=== PATIENT | female | born 1985 | race Caucasian/White ===

== ENCOUNTER 2016-04-08 07:43 | Emergency (ER) | payer OTHER ==
[~2016-04-08] VITALS: Ht 157.5 cm; Wt 57.8 kg
[2016-04-08 07:46] VITALS: Ht 157.5 cm; Wt 57.8 kg
[2016-04-08] MEDS ORDERED: ONDANSETRON (ODT) 4 MG TAB ODT STA (08:08)
[2016-04-08] MEDS ORDERED: MECLIZINE 12.5 MG TAB PO ONE (08:30)
[2016-04-08 08:55] LABS: URINE BLOOD (Dip) POC 1+ (NEGATIVE)
[2016-04-08] MEDS ORDERED: CEPH-443 PO (09:07)
[2016-04-08] MEDS ORDERED: ONDA4TAB14 PO (09:07)
--- NOTE | 2016-04-08 09:20 | ERD ---
ER Documentation Chief Complaint Date/Time DATE: 04/08/16 TIME: 09:14 Chief Complaint flu luis e symptoms x 1 week HPI 30-year-old female presents with multiple complaints including "sinus headache "cough, congestion, runny nose, body aches, chills. She also admits to dysuria and increased urinary frequency. Denies hematuria. Also admits to dizziness and feeling the room is spinning is worse with changing positions of her head. Symptoms haven't going on for about one week. She is taking Advil which has not helped. ROS All systems reviewed and are negative except as per history of present illness. Medications Home Meds Active Scripts Ondansetron (Ondansetron Odt) 4 Mg Tab.rapdis, 4 MG PO Q6H Y for NAUSEA AND/OR VOMITING, #20 TAB Prov:ECTOR SORIA PA-C 04/08/16 Cephalexin* (Keflex*) 500 Mg Capsule, 500 MG PO BID for 7 Days, CAP Prov:ECTOR SORIA PA-C 04/08/16 Allergies Allergies: Coded Allergies: No Known Allergy (Verified Allergy, Unknown, 11/10/08) PMhx/Soc Medical and Surgical Hx: pt denies Medical Hx, pt denies Surgical Hx Hx Alcohol Use: No Hx Substance Use: No Hx Tobacco Use: No Smoking Status: Never smoker FmHx Family History: No diabetes Physical Exam Vitals Vital Signs Date Time Temp Pulse Resp B/P Pulse Ox O2 Delivery O2 Flow Rate FiO2 04/08/16 07:46 97.8 72 18 100/61 99 Physical Exam General: well developed, well nourished, alert, nontoxic, no distress Head: normocephalic, atraumatic Eyes: PERRL, normal conjunctiva Neck: Supple, nontender, no lymphadenopathy, no midline tenderness Ears: no tenderness over mastoids bilaterally, TMs nonerythematous, no exudates in canal Oropharynx: no tonsilar erythema or edema, uvula midline, no exudates, no kissing tonsils, no drooling Respiratory: Clear to auscaultation bilaterally, speaks in full sentences, no use of accesory muscles or labored breathing, no rales, ronchi, or wheezing Cardiovascular: RRR, No murmurs GI: soft, non tender, non distended, negative murphys sign, negative mcburneys point tenderness, no cva tenderness bilaterally, no rebound or guarding Back: no midline tenderness, no step offs or bony abnormalities, sensation to light touch in tact neuro: normal gait, normal speech, no cerebellar signs, cn in tact, alert and oriented Results 24 hrs Laboratory Tests Test 04/08/16 08:43 04/08/16 08:55 Bedside Glucose 96mg/dL Bedside Urine Blood 1+ Bedside Urine Glucose (UA) Negative Bedside Urine Ketones (LAB) 1+ Bedside Urine Leukocyte Esterase (L 1+ Bedside Urine Nitrite (LAB) Negative Bedside Urine Protein (LAB) 2+ Bedside Urine pH (LAB) >=9.0 Current Medications Medications (Trade) Dose Ordered Sig/Carlene Route PRN Reason Start Time Stop Time Status Last Admin Dose Admin Ondansetron HCl (Zofran Odt) 4 mg ONCE STAT ODT 04/08/16 08:08 04/08/16 08:10 DC 04/08/16 08:32 Meclizine HCl (Antivert) 25 mg ONCE ONCE PO 04/08/16 08:30 04/08/16 08:31 DC 04/08/16 08:32 Procedures/MDM 30-year-old female presents with multiple complaints including sinus headache, dysuria, and flulike symptoms. Her vital signs are all within normal limits and her examination is benign. She was given Zofran and meclizine for her dizziness which is most likely consistent with benign positional vertigo when she had improvement of her symptoms with these medications given. Urine did show evidence of urinary infection. Urine negative for . Accu-Chek was 96. Patient was discharged with Zofran and Keflex for urinary tract infection. Recommended this patient follow up with her primary care doctor within 48 hours or return to the emergency room for any worsening of symptoms. However this time I do believe there is suitable for outpatient management. I answered all their questions and they agreed with the plan and were discharged home. Departure Diagnosis: Primary Impression: Cystitis Additional Impression: Benign positional vertigo Condition: Stable Patient Instructions: Cystitis Additional Instructions: Call your primary care doctor TOMORROW for an appointment during the next 1-2 days.See the doctor sooner or return here if your condition worsens before your appointment time. ECTOR SORIA PA-C Apr 08, 2016 09:19
[2016-04-08] MEDS ORDERED: IBUP-1542 PO (09:35)
[2016-04-08] MEDS ORDERED: FLUT9.9S NASAL (09:35)
[2016-04-08 09:39] VITALS: BP 102/62; PULSE 78; RESP 18; TEMP 98.1
== END 2016-04-08 09:40 | disposition home or self-care (01) ==
LOC: FTE 07:43
DX: N30.90 Cystitis, unspecified without hematuria (principal); H81.10 Benign paroxysmal vertigo, unspecified ear; R11.0 Nausea
CPT/HCPCS: 81003; 82962; Z7502; Z7610; 99284